=== PATIENT | female | born 1965 | race Caucasian/White ===

== ENCOUNTER 2019-02-15 15:22 | Emergency (ER) | payer BC ==
[2019-02-15 16:52] LABS: Appearance,Urine Clear (Clear); Bilirubin,Urine Negative (Negative); Blood,Urine Negative (Negative); Color,Urine Light Yellow; Glucose,Urine (UA) Negative (Negative); Ketones,Urine Negative (Negative); Leukocyte Esterase,Urine Negative (Negative); Nitrite,Urine Negative (Negative); PH, Urine 5.5 (5.0-8.0); Protein,Urine Negative (Negative); Specific Gravity,Urine 1.003 (1.001-1.035); Urobilinogen,Urine <2.0 mg/dL (<2.0)
--- NOTE | 2019-02-15 17:00 | ED ---
Psych HPI - General Chief Complaint: Psychiatric Symptoms Stated Complaint: Mental Health Time Seen by Provider: 02/15/19 16:00 Source: patient, police Mode of arrival: ambulatory - History of Present Illness Initial Comments: The patient is a 53 year old female who presents to the emergency room with reported suicidal complaints. [facility] was out at her house to evaluate her son. While they were there they were concerned about her well-being. She had stated that she had thoughts of suicide. She states that she has been "googling" how to kill herself for the past couple of days. She thought about taking a bunch of her medications. Also reports that she was going to walk in front of a car. States that her depression is secondary to a failed marriage. States that she still lives with her however she is very unhappy. She does have kids with him and is attempting to stay because the kids. She states that her daughter has a large history of depression and needs to see a therapist. She also has a special needs son. She was planning to get back with her ex- boyfriend and this was providing her with hope. She reports that her ex- boyfriend just broke it off with her and now she has nothing left to live for. She denies any homicidal ideations or hallucinations. She does see her primary care physician for depression and he has adjusted her medications. She states that she has also seen a therapist. She denies hospitalization. She denies any additional symptoms to include blunt head trauma, headache, neck pain, fevers, chills, abdominal pain. There are no other alleviating, precipitating or modified factors - Related Data Home Medications Medication Instructions Recorded Confirmed Citalopram Hydrobromide [CeleXA] 40 mg PO DAILY 02/15/19 02/15/19 Gabapentin 600 mg PO TID 02/15/19 02/15/19 QUEtiapine [SEROquel] 50 - 100 mg PO HS 02/15/19 02/15/19 buPROPion HCL [Wellbutrin SR] 200 mg PO BID 02/15/19 02/15/19 clonazePAM [KlonoPIN] 0.5 mg PO BID 02/15/19 02/15/19 Allergies Allergy/AdvReac Type Severity Reaction Status Date / Time Penicillins Allergy Rash/Hives Verified 02/15/19 17:20 Review of Systems ROS Statement: Those systems with pertinent positive or pertinent negative responses have been documented in the HPI. ROS Other: All systems not noted in ROS Statement are negative. Past Medical History Past Medical History: No Reported History History of Any Multi-Drug Resistant Organisms: None Reported Past Surgical History: Section, Orthopedic Surgery, Tonsillectomy Past Psychological History: Anxiety, Depression Smoking Status: Current every day smoker Past Alcohol Use History: None Reported Past Drug Use History: None Reported General Exam Limitations: no limitations General appearance: alert, in no apparent distress Head exam: Present: atraumatic, normocephalic, normal inspection Eye exam: Present: normal appearance, PERRL, EOMI. Absent: scleral icterus, con junctival injection, periorbital swelling ENT exam: Present: normal exam, mucous membranes moist Neck exam: Present: normal inspection. Absent: tenderness, meningismus, lymphadenopathy Respiratory exam: Present: normal lung sounds bilaterally. Absent: respiratory distress, wheezes, rales, rhonchi, stridor Cardiovascular Exam: Present: regular rate, normal rhythm, normal heart sounds. Absent: systolic murmur, diastolic murmur, rubs, gallop, clicks GI/Abdominal exam: Present: soft, normal bowel sounds. Absent: distended, tenderness, guarding, rebound, rigid Extremities exam: Present: normal inspection, full ROM, normal capillary refill. Absent: tenderness, pedal edema, joint swelling, calf tenderness Back exam: Present: normal inspection Neurological exam: Present: alert, oriented X3, CN II-XII intact Psychiatric exam: Present: depressed, suicidal ideation Skin exam: Present: warm, dry, intact, normal color. Absent: rash Course Vital Signs 02/15/19 02/16/19 02/16/19 15:57 05:52 06:12 Temperature 98.1 F Pulse Rate 83 70 79 Respiratory 18 16 16 Rate Blood Pressure 110/73 124/87 95/59 O2 Sat by Pulse 99 99 98 Oximetry 02/16/19 02/16/19 08:43 11:00 Temperature 98.3 F 98.6 F Pulse Rate 89 80 Respiratory 14 14 Rate Blood Pressure 113/81 118/76 O2 Sat by Pulse 98 98 Oximetry Medical Decision Making - Medical Decision Making The patient is evaluated by myself. She does express suicidal ideations which are severe. Blood alcohol testing is performed which is negative. Urine drug screen is also performed. I did recommend evaluation by social work for placement. The patient did agree to this. She is currently remaining in stable condition awaiting evaluation. After EPS evaluation, she was placed at [facility]. She was transferred in stable condition. - Lab Data Result diagrams: 02/16/19 02:14 02/16/19 02:14 Lab Results 02/15/19 02/16/19 02/16/19 Range/Units 16:41 02:14 02:14 WBC 7.3 (3.8-10.6) k/uL RBC 4.56 (3.80-5.40) m/uL Hgb 14.4 (11.4-16.0) gm/dL Hct 43.8 (34.0-46.0) % MCV 96.0 (80.0-100.0) fL MCH 31.6 (25.0-35.0) pg MCHC 32.9 (31.0-37.0) g/dL RDW 12.9 (11.5-15.5) % Plt Count 188 (150-450) k/uL Neutrophils % 53 % Lymphocytes % 34 % Monocytes % 6 % Eosinophils % 4 % Basophils % 1 % Neutrophils # 3.9 (1.3-7.7) k/uL Lymphocytes # 2.5 (1.0-4.8) k/uL Monocytes # 0.4 (0-1.0) k/uL Eosinophils # 0.3 (0-0.7) k/uL Basophils # 0.1 (0-0.2) k/uL Sodium 138 (137-145) mmol/L Potassium 3.8 (3.5-5.1) mmol/L Chloride 111 H (98-107) mmol/L Carbon Dioxide 21 L (22-30) mmol/L Anion Gap 6 mmol/L BUN 9 (7-17) mg/dL Creatinine 0.84 (0.52-1.04) mg/dL Est GFR (CKD-EPI)AfAm >90 (>60 ml/min/1.73 sqM) Est GFR (CKD-EPI)NonAf 79 (>60 ml/min/1.73 sqM) Glucose 84 (74-99) mg/dL Calcium 9.2 (8.4-10.2) mg/dL Total Bilirubin 0.9 (0.2-1.3) mg/dL AST 16 (14-36) U/L ALT 15 (9-52) U/L Alkaline Phosphatase 45 (38-126) U/L Total Protein 6.4 (6.3-8.2) g/dL Albumin 3.8 (3.5-5.0) g/dL Urine Color Light Yellow Urine Appearance Clear (Clear) Urine pH 5.5 (5.0-8.0) Ur Specific [place] 1.003 (1.001-1.035) Urine Protein Negative (Negative) Urine Glucose (UA) Negative (Negative) Urine Ketones Negative (Negative) Urine Blood Negative (Negative) Urine Nitrite Negative (Negative) Urine Bilirubin Negative (Negative) Urine Urobilinogen <2.0 (<2.0) mg/dL Ur Leukocyte Esterase Negative (Negative) Urine Opiates Screen Not Detected (NotDetected) Ur Oxycodone Screen Not Detected (NotDetected) Urine Methadone Screen Not Detected (NotDetected) Ur Propoxyphene Screen Not Detected (NotDetected) Ur Barbiturates Screen Not Detected (NotDetected) U Tricyclic Antidepress Not Detected (NotDetected) Ur Phencyclidine Scrn Not Detected (NotDetected) Ur Amphetamines Screen Detected H (NotDetected) U Methamphetamines Scrn Not Detected (NotDetected) U Benzodiazepines Scrn Not Detected (NotDetected) Urine Cocaine Screen Not Detected (NotDetected) U Marijuana (THC) Screen Not Detected (NotDetected) Disposition Clinical Impression: Depression, Suicidal ideation Disposition: TRANSFER TO PSYCH HOSP/UNIT Condition: Serious Is patient prescribed a controlled substance at d/c from ED?: No Referrals: Nonstaff,Physician [REFERRING] - 1-2 days - Out of Hospital Transfer - Req. Specs Out of Hospital Transfer - Requested Specifics: Psychiatric Non-ICU ([place])
[2019-02-15 17:02] LABS: Cocaine Screen,Urine Not Detected (NotDetected); Opiate Screen,Urine Not Detected (NotDetected); Phencyclidine Screen,Urine Not Detected (NotDetected); Urn Cannabinoid Scrn Not Detected (NotDetected)
[2019-02-15 17:03] LABS: Amphetamine Screen,Urine Detected (NotDetected); Barbiturate Screen,Urine Not Detected (NotDetected); Benzodiazepines Screen,Urine Not Detected (NotDetected); Methadone Screen, Urine Not Detected (NotDetected); Oxycodone Screen, Urine Not Detected (NotDetected); Tricyclic Antidepressant,Urine Not Detected (NotDetected)
[2019-02-15] MEDS ORDERED: NICOTINE 21MG/24HR PATCH TRANSDERM STA (18:34)
[2019-02-15] MEDS ORDERED: IBUPROFEN 800 MG TAB PO STA (18:35)
[2019-02-16 02:24] LABS: Basophils # (A) 0.1 k/uL (0-0.2); Basophils % (A) 1 %; Eosinophils # (A) 0.3 k/uL (0-0.7); Eosinophils % (A) 4 %; HCT 43.8 % (34.0-46.0); HGB 14.4 gm/dL (11.4-16.0); Lymphocytes # (A) 2.5 k/uL (1.0-4.8); Lymphocytes % (A) 34 %; MCH 31.6 pg (25.0-35.0); MCHC 32.9 g/dL (31.0-37.0); Mean Platelet Volume 7.3; Monocytes # (A) 0.4 k/uL (0-1.0); Monocytes % (A) 6 %; Neutrophils # (A) 3.9 k/uL (1.3-7.7); Neutrophils % (A) 53 %; Platelet Count 188 k/uL (150-450); RBC 4.56 m/uL (3.80-5.40); RDW 12.9 % (11.5-15.5); WBC 7.3 k/uL (3.8-10.6)
[2019-02-16 02:32] LABS: ALT 15 U/L (9-52); AST 16 U/L (14-36); African American GFR (CKD) >90 (>60 ml/min/1.73 sqM); Albumin 3.8 g/dL (3.5-5.0); Alkaline Phosphatase 45 U/L (38-126); Anion Gap 6 mmol/L; Blood Urea Nitrogen 9 mg/dL (7-17); Calcium 9.2 mg/dL (8.4-10.2); Carbon Dioxide 21 mmol/L (22-30); Chloride 111 mmol/L (98-107); Glucose 84 mg/dL (74-99); Sodium 138 mmol/L (137-145); Total Bilirubin 0.9 mg/dL (0.2-1.3); Total Protein 6.4 g/dL (6.3-8.2)
[2019-02-16 02:36] LABS: Potassium 3.8 mmol/L (3.5-5.1)
[2019-02-16] MEDS ORDERED: ACETAMINOPHEN TAB 325 MG TAB PO STA (08:33)
[2019-02-16 08:44] VITALS: RESP 14
[2019-02-16] MEDS ORDERED: GABAPENTIN 300 MG CAP PO SCH (09:00)
[2019-02-16] MEDS ORDERED: BUPROPION HCL 200 MG PO SCH (09:00)
[2019-02-16] MEDS ORDERED: NON-FORMULARY DRUG (Citalopram Hydrobromide [Celexa] 40 MG) PO SCH (09:00)
[2019-02-16] MEDS ORDERED: clonazePAM 0.5 MG TAB PO SCH (09:00)
[2019-02-16 11:16] VITALS: BP 118/76; PULSE 80; TEMP 98.6
[2019-02-16] MEDS ORDERED: QUEtiapine 50 MG TAB PO SCH (21:00)
== END 2019-02-16 11:05 ==
LOC: EDSEX → EC 15:22
DX: F32.9 Major depressive disorder, single episode, unspecified (principal); R45.851 Suicidal ideations; F41.9 Anxiety disorder, unspecified; F17.200 Nicotine dependence, unspecified, uncomplicated; Z79.899 Other long term (current) drug therapy; Z88.0 Allergy status to penicillin; Z63.0 Problems in relationship with spouse or partner
CPT/HCPCS: 82075; 36415; 80053; 85025; 81003; 80306; 99285; S4990